=== PATIENT | male | born 1935 | race Caucasian/White ===

== ENCOUNTER → 2018-08-01 10:00 | Outpatient (REF) | payer MEDICARE, OTHER, SELFPAY | LOC: LAB 10:00 | PROVIDERS: Family Provider Family Medicine Geriatric Medicine; PCP Family Medicine Geriatric Medicine; Visit Provider Family Medicine Geriatric Medicine | DX: D48.5 Neoplasm of uncertain behavior of skin (principal); L57.0 Actinic keratosis | CPT/HCPCS: 88305 ==